=== PATIENT | male | born 1945 | race Caucasian/White ===

== ENCOUNTER 2017-04-20 10:42 | Emergency (ER) | payer OTHER, MEDICARE, BC ==
[~2017-04-20] VITALS: Ht 177.8 cm; Wt 106.0 kg
[2017-04-20] MEDS ORDERED: BACTRIM DS1 TAB PO (11:54)
[2017-04-20] MEDS ORDERED: CEPHALEXIN500 M1 PO (11:54)
[2017-04-20] MEDS ORDERED: ATORVASTATIN CA40 MG PO (12:14)
[2017-04-20] MEDS ORDERED: QUINAPRIL HCL20 MG PO (12:15)
[2017-04-20] MEDS ORDERED: PRAMIPEXOLE D0.25 MG PO (12:15)
[2017-04-20] MEDS ORDERED: FERR SULFATE325 MG PO (12:16)
[2017-04-20] MEDS ORDERED: ATENOLOL50 MG PO (12:16)
[2017-04-20] MEDS ORDERED: ASPIRINCHW 81MG PO (12:17)
[2017-04-20 12:18] VITALS: BP 139/79
== END 2017-04-20 12:15 | disposition home or self-care (01) | DRG 603 ==
LOC: ED 10:42
DX: L03.116 Cellulitis of left lower limb (principal)